=== PATIENT | female | born 1995 | race Caucasian/White ===

== ENCOUNTER 2022-06-05 15:49 | Emergency (ER) | payer OTHER, SELFPAY ==
--- NOTE | ~2022-06-05 | XR_ITS ---
EXAMINATION: XR foot RT min 3V DATE: 06/05/2022 16:15 INDICATION: Right foot pain TECHNIQUE: Dorsoplantar, lateral, and 2 oblique views of the right foot were obtained. COMPARISON: None. FINDINGS: There is no fracture, dislocation, or subluxation. The bones and joint spaces are normal. T here is dorsal soft tissue swelling of the foot. A well-corticated osseous density projecting at the superior/proximal aspect of the navicular on the lateral view has the appearance of an old injury or ossicle. IMPRESSION: 1. No acute osseous abnormality. Reviewed, dictated and finalized at location B.
[2022-06-05 16:03] VITALS: BP 129/83; PULSE 108; RESP 16; TEMP 37.1; O2SAT 100
--- NOTE | 2022-06-05 16:21 | ED.LOWEXIN ---
HPI - Extremity Injury (Lower) General Chief Complaint: Extremity Injury, Lower Stated Complaint: rt foot pain Time Seen by Provider: 06/05/22 16:22 History of Present Illness HPI Narrative: Barbie Machado is a 27 yo female who was at work and had an electric wheelchair went over her right foot she states she has pain on the top and the bottom of her foot and although her foot is not particularly swollen she says she has a lot of numbness and tingling in her foot. Tablet work today is here for x-ray as well as an evaluation when she can return to work Related Data Home Medications Medication Instructions Recorded Confirmed No Home Medications 06/05/22 06/05/22 Allergies Allergy/AdvReac Type Severity Reaction Status Date / Time amphetamine Allergy Unknown Unknown Verified 06/05/22 16:01 dextroamphetamine Allergy Unknown Unknown Verified 06/05/22 16:01 Review of Systems Review of Systems: CONSTITUTIONAL: Denies fever, chills, sweats. EYES: Denies visual changes, redness, discharge. ENT: Denies rhinorrhea, congestion, sore throat, otalgia. CARDIOVASCULAR: Denies chest pain, palpitations, edema. RESPIRATORY: Denies dyspnea, wheezing, cough GASTROINTESTINAL: Denies abdominal pain, nausea, vomiting, diarrhea. GENITOURINARY: Denies dysuria, hematuria, abnormal discharge SKIN: Denies rash or itching. NEUROLOGIC: Denies numbness, or focal weakness. PSYCHIATRIC: Denies anxiety or depression. R Foot was run over by electric wheelchair PMFSH Past Medical History Medical History ADHD Migraine Social History Social History (Updated 06/05/22 @ 16:31 by Cara Sanchez CNP) Smoking status: Never smoker Alcohol intake: former Comments At time of signature, I agree with nursing past medical, surgical, social and family history. There is no relevant family history pertinent to the presenting complaint. Exam Narrative: GENERAL: This is a well-nourished, well-developed patient, in mild distress. HEAD: normocephalic, atraumatic. EYES: Sclera clear/white. Vision is grossly intact. EARS: External ears normal, Hearing grossly intact. NOSE: External nose normal without nasal discharge, nares without redness, no rhinorrhea. THROAT: Mucous membranes moist, NECK: Neck supple, non-tender CARDIOVASCULAR: Regular rate and rhythm without murmurs, gallops, or rubs. RESPIRATORY: Clear to auscultation. Breath sounds equal bilaterally. No wheezes, rales, or rhonchi. GASTROINTESTINAL: Not done SKIN: warm, intact with no suspicious lesions or rash, good texture and turgor. NEURO: awake, alert, and oriented to person, place and time. There were no obvious focal neurologic abnormalities. Steady gait EXTREMITIES: Normal range of motion. Right foot pain and numbness with some tingling is able to move toes 2+ pedal pulse skin pink BACK: Nontender without deformity Course Course Emergency Course: Patient here after her foot run over by power chair at work X-ray of right foot Level of Care: Express Care Visit Vital Signs Vital signs: Vital Signs Temperature 98.7 F 06/05/22 16:03 Pulse Rate 108 H 06/05/22 16:03 Respiratory Rate 16 06/05/22 16:03 Blood Pressure 129/83 06/05/22 16:03 Pulse Oximetry 100 06/05/22 16:03 Oxygen Delivery Room Air 06/05/22 16:03 Temperature 98.7 F 06/05/22 16:03 Pulse Rate 108 H 06/05/22 16:03 Respiratory Rate 16 06/05/22 16:03 Blood Pressure 129/83 06/05/22 16:03 Pulse Oximetry 100 06/05/22 16:03 Oxygen Delivery Room Air 06/05/22 16:03 MDM - Extremity Injury (Lower) Differential Diagnosis Differential diagnosis: Likely ankle sprain and strain, fracture of toe and other (Foot sprain or fracture) Critical Care Time Critical Care Time Critical Care Time: No Discharge Plan Discharge Clinical Impression: Foot sprain Qualifiers: Encounter type: initial encounter Laterality: right Qualified Code(s
== END 2022-06-05 16:50 | disposition home or self-care (01) ==
PROVIDERS: Emergency Provider Nurse Practitioner
DX: S93.601A Unspecified sprain of right foot, initial encounter (principal); X58.XXXA Exposure to other specified factors, initial encounter; Y99.0 Civilian activity done for income or pay
CPT/HCPCS: 73630; 99213; G0463

== ENCOUNTER → 2022-07-01 14:42 | Outpatient (CLI) | payer OTHER, SELFPAY ==
--- NOTE | ~2022-07-01 | MR_ITS ---
EXAMINATION: MR foot RT wo con DATE: 07/01/2022 15:48 INDICATION: Right foot pain. TECHNIQUE: Magnetic resonance imaging (MRI) of the right foot was performed without intravenous contr ast. COMPARISON: Right foot radiographs 06/05/2022 FINDINGS: Bone alignment is normal. No fracture. Lisfranc ligament is normal. Joint spaces are normal . The flexor and extensor tendons are normal. The musculature is normal. IMPRESSION: 1. No etiology for the patient's symptoms. Reviewed, dictated and finalized at location A.
== END ==
PROVIDERS: PCP Nurse Practitioner
DX: M79.671 Pain in right foot (principal)
CPT/HCPCS: 73718